=== PATIENT | male | born 1985 | race African-American/Black ===

== ENCOUNTER 2017-06-02 17:54 | Emergency (ER) | payer SELFPAY | END 2017-06-02 18:21 | disposition home or self-care (01) | LOC: NAV ERS 17:54 | DX: R42 Dizziness and giddiness (principal); G40.909 Epilepsy, unspecified, not intractable, without status epilepticus; F31.9 Bipolar disorder, unspecified; F17.210 Nicotine dependence, cigarettes, uncomplicated; Z79.899 Other long term (current) drug therapy | CPT/HCPCS: 99283 ==